=== PATIENT | female | born 1945 | race Two or more races ===

== ENCOUNTER 2018-03-21 10:50 | Emergency (ER) | payer OTHER ==
[~2018-03-21] VITALS: Ht 154.9 cm; Wt 107.0 kg
[~2018-03-21 10:50] MED LIST: ADVAIR 5001 DISK W/1; ASPIR 8181 MG; AVALIDE 300-121 EACH; BENICAR20 MG; CATAPRES0.2 MG; CLONIDINE HCL0.1 MG; DILTIAZEM ER120 M3; DOXAZOSIN MESYLA4 MG; HUMALOG MIX 50/53 M1; LASIX40 MG; LEVAQUIN500 MG PO; LIPITOR80 MG; MAXIMUM D310000 UNIT; NEURONTIN300 MG; SINGULAIR 10MG10 MG; SYNTHROID112 MCG
== END 2018-03-22 15:58 | disposition home or self-care (01) ==
LOC: ER 10:50 → CPU-OBS 10:53 → ER 03-22 15:58
DX: I27.29 Other secondary pulmonary hypertension (principal); E11.65 Type 2 diabetes mellitus with hyperglycemia; R07.89 Other chest pain; R42 Dizziness and giddiness

== ENCOUNTER 2018-04-13 12:28 | Emergency (ER) | payer OTHER ==
[~2018-04-13] VITALS: Ht 121.9 cm; Wt 107.0 kg
== END 2018-04-13 17:27 | disposition home or self-care (01) ==
LOC: ER 12:28
DX: E11.40 Type 2 diabetes mellitus with diabetic neuropathy, unspecified (principal); E11.65 Type 2 diabetes mellitus with hyperglycemia

== ENCOUNTER 2019-05-08 07:59 | Emergency (ER) | payer OTHER ==
[~2019-05-08] VITALS: Ht 154.9 cm; Wt 107.0 kg
== END 2019-05-08 12:24 | disposition home or self-care (01) ==
LOC: ER 07:59
DX: H57.11 Ocular pain, right eye (principal)

== ENCOUNTER 2019-07-27 01:53 | Emergency (ER) | payer OTHER ==
[~2019-07-27] VITALS: Ht 154.9 cm; Wt 107.0 kg
== END 2019-07-27 08:21 | disposition home or self-care (01) ==
LOC: ER 01:53
DX: E11.65 Type 2 diabetes mellitus with hyperglycemia (principal); Z79.84 Long term (current) use of oral hypoglycemic drugs

== ENCOUNTER 2019-11-18 09:04 | Inpatient (IN) | payer OTHER ==
[~2019-11-18] VITALS: Ht 154.9 cm; Wt 107.0 kg
--- NOTE | 2019-11-18 09:53 | NUR ---
PTE REFIERE TENER RASH EN TODO EL CUERPO Y SE LE OBSERVAN AMBAS PIERNAS ROJIZA Y EDEMATOSA CONDOLOR AL TACTO.
[2019-11-18] MEDS ORDERED: ELIQUIS2.5 MG (09:57)
[2019-11-18] MEDS ORDERED: PLAVIX75 MG (09:57)
[2019-11-18] MEDS ORDERED: GLIMEPIRIDE4 MG (09:59)
[2019-11-18] MEDS ORDERED: KAPVAY0.1 MG (09:59)
--- NOTE | 2019-11-18 10:22 | NUR ---
MISS. WICKDONADO ORIENTA AL PACIENTE SOBRE MEDICAMENTO Y MUESTRAS A SER COLECTADA NELIA ORDEN MEDICA. PACIENTE REFIERE ENTENDER. SE PROCEEDE A COLECTAR LAS MUESTRAS UTILIZANDO MEDIDAS ASEPTICAS Y SE ENVIAN AL LABORATORIO.
[2019-11-26] MEDS ORDERED: MEDROLPACK PO (11:48)
== END 2019-11-26 12:38 | disposition home or self-care (01) | DRG 637 ==
LOC: ER 09:04 → MEDJ 19:13
PROVIDERS: ADMIT Internal Medicine
PROC: 3E0F7GC Introduction of Other Therapeutic Substance into Respiratory Tract, Via Natural or Artificial Opening (ICD-10-PCS; 2019-11-24)
PROC: 0HBKXZX Excision of Right Lower Leg Skin, External Approach, Diagnostic (ICD-10-PCS; principal; 2019-11-25)
DX: E11.628 Type 2 diabetes mellitus with other skin complications (principal); I50.21 Acute systolic (congestive) heart failure; L03.115 Cellulitis of right lower limb; I25.810 Atherosclerosis of coronary artery bypass graft(s) without angina pectoris; I13.0 Hypertensive heart and chronic kidney disease with heart failure and stage 1 through stage 4 chronic kidney disease, or unspecified chronic kidney disease; J44.1 Chronic obstructive pulmonary disease with (acute) exacerbation; J45.41 Moderate persistent asthma with (acute) exacerbation; I25.812 Atherosclerosis of bypass graft of coronary artery of transplanted heart without angina pectoris; B37.41 Candidal cystitis and urethritis; L30.3 Infective dermatitis; I77.1 Stricture of artery; E03.8 Other specified hypothyroidism; E11.40 Type 2 diabetes mellitus with diabetic neuropathy, unspecified; E11.22 Type 2 diabetes mellitus with diabetic chronic kidney disease; E11.65 Type 2 diabetes mellitus with hyperglycemia; B96.29 Other Escherichia coli [E. coli] as the cause of diseases classified elsewhere; E66.09 Other obesity due to excess calories; N18.3 Chronic kidney disease, stage 3 (moderate); N17.8 Other acute kidney failure; Z79.4 Long term (current) use of insulin; Z79.01 Long term (current) use of anticoagulants; Z95.2 Presence of prosthetic heart valve

== ENCOUNTER 2020-01-02 17:09 | Inpatient (IN) | payer OTHER ==
[~2020-01-02] VITALS: Ht 165.1 cm; Wt 104.3 kg
[~2020-01-02 17:09] MED LIST changes: +ELIQUIS2.5 MG; +GLIMEPIRIDE4 MG; +KAPVAY0.1 MG; +MEDROLPACK PO; +PLAVIX75 MG
--- NOTE | 2020-01-02 18:00 | NUR ---
175 SE LLAMA A PTE EN SARAH NO RESPONDE.
--- NOTE | 2020-01-02 18:10 | NUR ---
PT ALERTA Y ORIENTADA, EN COMPANIA DE HIJA QUIEN REFIERE QUE DESDE MARTHA PTE PRESENTA EDEMA EN AMBAS PIERNAS Y NO FERNANDEZ ESTADO ORINANDO CON FRECUENCIA.REFIERE TIENE ABRASION EN LABIAS [facility] A [place],QUE ACTUALMENTE ESTA [place]. SE OBSERVAN PIERNAS EDEMATOSAS Y EXUDADO EN PIERNA LT.
[2020-01-02] MEDS ORDERED: LASIX20 MG PO (18:15)
[2020-01-02] MEDS ORDERED: PROTONIX40 M1 PO (18:16)
[2020-01-02] MEDS ORDERED: CARDIZEM CD300 MG PO (18:17)
[2020-01-02] MEDS ORDERED: ZYLOPRIM100 M1 PO (18:18)
--- NOTE | 2020-01-02 20:47 | NUR ---
1914 EVALUA PTE. SE ORIENTA A PTE SOBRE TX MEDICO. PTE REFIERE COMPRENDER. SE REALIZAN MUESTRAS DE LABORATORIO BAJO MEDIDAS ASEPTICAS Y SE ENVIAN AL LABORATORIO. SE ADMINISTRA MEDICAMENTO NELIA ORDEN MEDICA. PROCEDIMIENTOS LLEVADOS A CABO POR . SE NOTIFICAN SACHIN X. 2030-SE UBICA A PTE EN MONITOR CARDIACO Y OXIMETRIA DE [place]. SE NOTIFICA ABG A . SE INSERTA SONDA URINARIA BAJO MEDIDAS ESTERILES. SE OBSERVA ORINA COLOR AMARILLO CON MUCHO SEDIMENTO. SE COLECTAN MUESTRAS DE ORINA Y SE ENVIAN AL LABORATORIO. SE REALIZA EKG Y SE PRESENTA A . SE MANTIENE BAJO OBSERVACION.
== END 2020-01-05 14:48 | disposition designated cancer center or children's hospital (05) | DRG 291 ==
LOC: ER 17:09 → ICU-2 22:36 → ICU 01-04 03:13
PROVIDERS: ADMIT Internal Medicine
PROC: BT43ZZZ Ultrasonography of Bilateral Kidneys (ICD-10-PCS; principal; 2020-01-02)
PROC: B246ZZZ Ultrasonography of Right and Left Heart (ICD-10-PCS; 2020-01-02)
PROC: 02HV33Z Insertion of Infusion Device into Superior Vena Cava, Percutaneous Approach (ICD-10-PCS; 2020-01-02)
PROC: 4A033R1 Measurement of Arterial Saturation, Peripheral, Percutaneous Approach (ICD-10-PCS; 2020-01-02)
PROC: 0T9B70Z Drainage of Bladder with Drainage Device, Via Natural or Artificial Opening (ICD-10-PCS; 2020-01-02)
PROC: 3E0F7GC Introduction of Other Therapeutic Substance into Respiratory Tract, Via Natural or Artificial Opening (ICD-10-PCS; 2020-01-02)
PROC: B24BZZ4 Ultrasonography of Heart with Aorta, Transesophageal (ICD-10-PCS; 2020-01-04)
DX: I13.0 Hypertensive heart and chronic kidney disease with heart failure and stage 1 through stage 4 chronic kidney disease, or unspecified chronic kidney disease (principal); I50.23 Acute on chronic systolic (congestive) heart failure; A41.81 Sepsis due to Enterococcus; R65.20 Severe sepsis without septic shock; J44.1 Chronic obstructive pulmonary disease with (acute) exacerbation; L03.115 Cellulitis of right lower limb; J45.41 Moderate persistent asthma with (acute) exacerbation; I25.810 Atherosclerosis of coronary artery bypass graft(s) without angina pectoris; B37.41 Candidal cystitis and urethritis; N18.4 Chronic kidney disease, stage 4 (severe); N17.8 Other acute kidney failure; E11.22 Type 2 diabetes mellitus with diabetic chronic kidney disease; I08.0 Rheumatic disorders of both mitral and aortic valves; E03.8 Other specified hypothyroidism; E11.65 Type 2 diabetes mellitus with hyperglycemia; E11.40 Type 2 diabetes mellitus with diabetic neuropathy, unspecified; D69.59 Other secondary thrombocytopenia; D63.1 Anemia in chronic kidney disease; K76.1 Chronic passive congestion of liver; L30.8 Other specified dermatitis; N76.2 Acute vulvitis; R09.02 Hypoxemia; R31.29 Other microscopic hematuria; Z79.4 Long term (current) use of insulin